=== PATIENT | female | born 1960 | race Caucasian/White ===

== ENCOUNTER → 2017-04-18 | Outpatient (CLI) | payer BC ==
[~2017-04-18] MED LIST: BENA40TA60 PO; DIPH25CA79 PO; FURO-125 PO; IBUP-15 PO; LEVO75TA PO; NF-TORA10 PO; PROM25AM11 IJ
--- NOTE | 2017-04-19 21:43 | Diagnostic Imaging Report ---
INDICATION: Digital screening with CAD. Compared 03/2016, 01/2015 and 10/2013. The current study was also evaluated with a Computer Aided Detection (CAD) system. FINDINGS: The exam is stable and negative. No dominant mass, spiculated lesion, architectural distortion, suspicious calcifications or interval changes are seen. IMPRESSION: Stable negative mammograms ACR BI-RADS Category 1: Negative. Result letter will be mailed to the patient. Note: At least 10% of breast cancer is not imaged by mammography. Dictated by: Dictated on workstation # [id number]
== END ==
LOC: RAD 08:23
PROVIDERS: ATTEND Family Medicine
DX: Z12.31 Encounter for screening mammogram for malignant neoplasm of breast (principal)